=== PATIENT | female | born 2000 | race Two or more races ===

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

== ENCOUNTER 2018-01-13 19:24 | Emergency (ER) | payer MEDICAID ==
[~2018-01-13] VITALS: Ht 165.1 cm; Wt 90.8 kg
[2018-01-13 19:42] VITALS: BP 135/87
[2018-01-13 20:05] LABS: URINE HCG NEGATIVE (NEG)
[2018-01-13 20:08] LABS: CLARITY,URINE SLIGHTLY CLOUDY (Clear); COLOR,URINE YELLOW (Yellow); GLUCOSE, URINE NEGATIVE (Neg); KETONES,URINE NEGATIVE (Neg); LEUKOCYTE ESTERASE ,URINE LARGE (Neg); NITRITES, URINE NEGATIVE (Neg); OCCULT BLOOD,URINE SMALL (Neg); PROTEIN,URINE NEGATIVE (Neg)
[2018-01-13 20:10] LABS: UA COLLECTION TYPE CLN CATCH MIDSTREAM
[2018-01-13 20:25] LABS: BASOPHILS % (AUTO) 0.4 % (0-1); EOSINOPHILS # (AUTO) 0.1 X10'3 (0-0.9); EOSINOPHILS % (AUTO) 0.7 % (0-6); HEMOGLOBIN 14.3 g/dl (12.0-16.0); LYMPHOCYTES # (AUTO) 4.8 X10'3 (1.1-4.8); LYMPHOCYTES % (AUTO) 44.5 % (21-51); MEAN CORPUSCULAR HEMOGLOBIN 32.1 PG (27.0-31.0); MEAN CORPUSCULAR HGB CONC 34.8 % (33.0-36.5); MEAN CORPUSCULAR VOLUME 92.3 FL (78-98); MEAN PLATELET VOLUME 8.6 FL (7.4-10.4); MONOCYTES # (AUTO) 0.5 X10'3 (0-0.9); MONOCYTES % (AUTO) 4.9 % (2-12); NEUTROPHILS # (AUTO) 5.3 X10'3 (1.8-7.7); NEUTROPHILS % (AUTO) 49.5 % (42-75); PLATELET COUNT 284 X10'3 (140-440); RED BLOOD COUNT 4.44 X10'6 (4.20-5.60); RED CELL DISTRIBUTION WIDTH 12.4 % (11.5-14.5); WHITE BLOOD COUNT 10.7 X10'3 (4.5-11.0)
[2018-01-13] MEDS ORDERED: HYDROcodone/acetaminophen 10/325mg tab PO ONE ×2 (20:35→22:25)
[2018-01-13 20:38] LABS: BACTERIA,URINE 2+ /HPF (Neg); MUCUS STRANDS MODERATE /LPF (Neg); RBC,URINE 0-2 /HPF (0-2); SQUAMOUS EPITHELIAL CELL,UR MODERATE /LPF (FEW); WBC,URINE 20-30 /HPF (0-4)
[2018-01-13 20:40] LABS: ALANINE AMINOTRANSFERASE 23 U/L (12-78); ALBUMIN 3.7 G/DL (3.4-5.0); ALKALINE PHOSPHATASE 77 IU/L (20-180); ANION GAP 9 (8-16); ASPARTATE AMINO TRANSFERASE 14 U/L (10-37); BILIRUBIN,TOTAL 0.2 MG/DL (0.1-1.0); BLOOD UREA NITROGEN 8 MG/DL (7-18); BUN/CREATININE RATIO 10.5 (6.6-38.0); CALCIUM 8.6 MG/DL (8.5-10.1); CHLORIDE 102 MMOL/L (99-107); CREATININE 0.76 MG/DL (0.40-0.90); GLUCOSE 90 MG/DL (70-104); POTASSIUM 3.9 MMOL/L (3.5-5.1); SODIUM 135 MMOL/L (135-145); TOTAL CARBON DIOXIDE 24.5 MMOL/L (24-32); TOTAL PROTEIN 7.5 G/DL (6.4-8.2); eGFR > 90 ML/MIN
[2018-01-13] MEDS ORDERED: CIPR-230 PO (22:22)
[2018-01-13] MEDS ORDERED: HYDR-565 PO (22:22)
[2018-01-13] MEDS ORDERED: ciprofloxacin 250mg tablet PO ONE (22:25)
== END 2018-01-13 22:35 | disposition home or self-care (01) ==
LOC: ER 19:24
DX: R10.31 Right lower quadrant pain (principal); R10.32 Left lower quadrant pain; R10.84 Generalized abdominal pain
CPT/HCPCS: 36415; 80053; 81001; 81025; 85025; 87088; 87210; 99284

== ENCOUNTER 2018-02-11 15:16 | Emergency (ER) | payer MEDICAID ==
[~2018-02-11] VITALS: Ht 162.6 cm; Wt 99.0 kg
[~2018-02-11 15:16] MED LIST changes: +CIPR-230 PO; +HYDR-565 PO
[2018-02-11 15:25] VITALS: BP 132/90
[2018-02-11 17:28] LABS: BASOPHILS % (AUTO) 0.4 % (0-1); EOSINOPHILS % (AUTO) 0.5 % (0-6); HEMATOCRIT 43.4 % (35.0-45.0); HEMOGLOBIN 14.9 g/dl (12.0-16.0); LYMPHOCYTES # (AUTO) 3.4 X10'3 (1.1-4.8); MEAN CORPUSCULAR HEMOGLOBIN 31.1 PG (27.0-31.0); MEAN CORPUSCULAR HGB CONC 34.4 % (33.0-36.5); MEAN CORPUSCULAR VOLUME 90.6 FL (78-98); MEAN PLATELET VOLUME 10.3 FL (7.4-10.4); MONOCYTES # (AUTO) 0.4 X10'3 (0-0.9); MONOCYTES % (AUTO) 5.4 % (2-12); NEUTROPHILS # (AUTO) 3.5 X10'3 (1.8-7.7); NEUTROPHILS % (AUTO) 47.7 % (42-75); PLATELET COUNT 251 X10'3 (140-440); RED CELL DISTRIBUTION WIDTH 12.2 % (11.5-14.5); WHITE BLOOD COUNT 7.4 X10'3 (4.5-11.0)
[2018-02-11 17:28] LABS: CLARITY,URINE CLEAR (Clear); COLOR,URINE YELLOW (Yellow); GLUCOSE, URINE NEGATIVE (Neg); KETONES,URINE NEGATIVE (Neg); LEUKOCYTE ESTERASE ,URINE NEGATIVE (Neg); NITRITES, URINE NEGATIVE (Neg); OCCULT BLOOD,URINE LARGE (Neg); PH,URINE 5.5 (4.8-8.0); PROTEIN,URINE NEGATIVE (Neg); UROBILINOGEN,URINE 0.2 E.U/dL (0.2-1.0)
[2018-02-11 17:31] LABS: UA COLLECTION TYPE CLN CATCH MIDSTREAM
[2018-02-11 17:34] LABS: MUCUS STRANDS NONE SEEN /LPF (Neg); SQUAMOUS EPITHELIAL CELL,UR FEW /LPF (FEW)
[2018-02-11 17:36] LABS: BACTERIA,URINE NONE SEEN /HPF (Neg); WBC,URINE 0-4 /HPF (0-4)
[2018-02-11 17:43] LABS: ALANINE AMINOTRANSFERASE 34 U/L (12-78); ALBUMIN 4.1 G/DL (3.4-5.0); ALKALINE PHOSPHATASE 85 IU/L (20-180); ANION GAP 10 (8-16); ASPARTATE AMINO TRANSFERASE 21 U/L (10-37); BILIRUBIN,TOTAL 0.2 MG/DL (0.1-1.0); BLOOD UREA NITROGEN 9 MG/DL (7-18); BUN/CREATININE RATIO 12.5 (6.6-38.0); CALCIUM 9.1 MG/DL (8.5-10.1); CHLORIDE 104 MMOL/L (99-107); CREATININE 0.72 MG/DL (0.40-0.90); GLUCOSE 86 MG/DL (70-104); POTASSIUM 4.1 MMOL/L (3.5-5.1); SODIUM 139 MMOL/L (135-145); TOTAL CARBON DIOXIDE 24.6 MMOL/L (24-32); TOTAL PROTEIN 8.2 G/DL (6.4-8.2); eGFR > 90 ML/MIN
[2018-02-11 17:53] LABS: URINE HCG NEGATIVE (NEG)
== END 2018-02-11 18:44 | disposition home or self-care (01) ==
LOC: ER 15:16
DX: N94.6 Dysmenorrhea, unspecified (principal); Z79.899 Other long term (current) drug therapy
CPT/HCPCS: 36415; 76856; 80053; 81001; 81025; 85025; 99285

== ENCOUNTER 2018-03-07 23:31 | Emergency (ER) | payer MEDICAID ==
[~2018-03-07] VITALS: Ht 167.6 cm; Wt 95.4 kg
[~2018-03-07 23:31] MED LIST changes: -CIPR-230 PO; -HYDR-565 PO
[2018-03-08 01:19] VITALS: BP 136/71
[2018-03-08] MEDS ORDERED: HYDROcodone/acetaminophen 5mg/325mg tablet PO ONE (01:20)
[2018-03-08] MEDS ORDERED: ondansetron 4mg rapidly disintigrating tab PO ONE (01:20)
== END 2018-03-08 01:35 | disposition home or self-care (01) ==
LOC: ER 23:32
DX: S10.91XA Abrasion of unspecified part of neck, initial encounter (principal); Z79.899 Other long term (current) drug therapy; Y04.0XXA Assault by unarmed brawl or fight, initial encounter; Y93.89 Activity, other specified; Y92.89 Other specified places as the place of occurrence of the external cause; Y99.8 Other external cause status
CPT/HCPCS: 99283

== ENCOUNTER 2018-05-21 00:59 | Emergency (ER) | payer MEDICAID ==
[~2018-05-21] VITALS: Ht 162.6 cm; Wt 95.0 kg
[2018-05-21 01:28] VITALS: BP 123/49
[2018-05-21] MEDS ORDERED: NAPR-56 PO (02:27)
[2018-05-21] MEDS ORDERED: HYDROcodone/acetaminophen 10/325mg tab PO ONE (02:30)
== END 2018-05-21 02:35 | disposition home or self-care (01) ==
LOC: ER 00:59
DX: S60.211A Contusion of right wrist, initial encounter (principal); F17.200 Nicotine dependence, unspecified, uncomplicated; Z79.899 Other long term (current) drug therapy; W01.0XXA Fall on same level from slipping, tripping and stumbling without subsequent striking against object, initial encounter; Y93.89 Activity, other specified; Y92.89 Other specified places as the place of occurrence of the external cause; Y99.8 Other external cause status
CPT/HCPCS: 29125; 73110; 99284

== ENCOUNTER 2018-09-21 19:06 | Emergency (ER) | payer MEDICAID ==
[~2018-09-21] VITALS: Ht 165.1 cm; Wt 93.7 kg
[2018-09-21 19:37] VITALS: BP 119/80
[2018-09-21 20:20] LABS: BASOPHILS # (AUTO) 0.1 X10'3 (0-0.2); BASOPHILS % (AUTO) 0.8 % (0-1); EOSINOPHILS # (AUTO) 0.1 X10'3 (0-0.9); EOSINOPHILS % (AUTO) 0.7 % (0-6); HEMOGLOBIN 14.6 g/dl (12.0-16.0); LYMPHOCYTES % (AUTO) 41.8 % (21-51); MEAN CORPUSCULAR HEMOGLOBIN 30.8 PG (27.0-31.0); MEAN CORPUSCULAR HGB CONC 34.1 g/dL (33.0-36.5); MEAN CORPUSCULAR VOLUME 90.4 FL (78-98); MEAN PLATELET VOLUME 8.6 FL (7.4-10.4); MONOCYTES # (AUTO) 0.7 X10'3 (0-0.9); NEUTROPHILS # (AUTO) 4.8 X10'3 (1.8-7.7); NEUTROPHILS % (AUTO) 49.7 % (42-75); PLATELET COUNT 336 X10'3 (140-440); RED BLOOD COUNT 4.76 X10'6 (4.20-5.60); WHITE BLOOD COUNT 9.6 X10'3 (4.5-11.0)
[2018-09-21 20:24] LABS: ALANINE AMINOTRANSFERASE 25 U/L (12-78); ALBUMIN 3.4 G/DL (3.4-5.0); ALBUMIN/GLOBULIN RATIO 0.8 (1.1-1.5); ALKALINE PHOSPHATASE 74 IU/L (20-180); ANION GAP 9 (8-16); ASPARTATE AMINO TRANSFERASE 13 U/L (10-37); BILIRUBIN,TOTAL 0.2 MG/DL (0.1-1.0); BLOOD UREA NITROGEN 10 MG/DL (7-18); BUN/CREATININE RATIO 14.1 (6.6-38.0); CALCIUM 8.9 MG/DL (8.5-10.1); CHLORIDE 105 MMOL/L (99-107); CREATININE 0.71 MG/DL (0.40-0.90); GLUCOSE 98 MG/DL (70-104); POTASSIUM 3.9 MMOL/L (3.5-5.1); SODIUM 140 MMOL/L (135-145); TOTAL CARBON DIOXIDE 26.4 MMOL/L (24-32); TOTAL PROTEIN 7.7 G/DL (6.4-8.2); eGFR > 90 ML/MIN
[2018-09-21 20:59] LABS: URINE HCG NEGATIVE (NEG)
[2018-09-21 21:07] LABS: CLARITY,URINE SLIGHTLY CLOUDY (Clear); COLOR,URINE YELLOW (Yellow); GLUCOSE, URINE NEGATIVE (Neg); KETONES,URINE NEGATIVE (Neg); LEUKOCYTE ESTERASE ,URINE LARGE (Neg); NITRITES, URINE NEGATIVE (Neg); OCCULT BLOOD,URINE NEGATIVE (Neg); PH,URINE 6.5 (4.8-8.0); PROTEIN,URINE NEGATIVE (Neg)
[2018-09-21 21:13] LABS: BACTERIA,URINE FEW /HPF (Neg); MUCUS STRANDS MODERATE /LPF (Neg); RBC,URINE NONE SEEN /HPF (0-2); SQUAMOUS EPITHELIAL CELL,UR MODERATE /LPF (FEW); UA COLLECTION TYPE CLN CATCH MIDSTREAM
--- NOTE | 2018-09-21 22:51 | NUR ---
pelvic setup done
[2018-09-21] MEDS ORDERED: ibuprofen tablet 400 MG TABLET PO ONE (23:25)
[2018-09-21] MEDS ORDERED: CefTRIAXone 250MG IM Kit w/LIDOcaine IM ONE (23:40)
--- NOTE | 2018-09-21 23:41 | NUR ---
assisted Charles CORREIA with pelvic examine, pt ben well, IUD removed without complications, wet mount sent to lab
[2018-09-21] MEDS ORDERED: DOXY100C43 PO (23:46)
[2018-09-21] MEDS ORDERED: IBUP-1984 PO (23:46)
[2018-09-21] MEDS ORDERED: azithromycin 250mg tablet PO ONE (23:50)
== END 2018-09-22 00:21 | disposition home or self-care (01) ==
LOC: ER 19:06
DX: N73.9 Female pelvic inflammatory disease, unspecified (principal); Z79.899 Other long term (current) drug therapy
CPT/HCPCS: 36415; 80053; 81001; 81025; 85025; 85610; 87088; 87210; 87491; 87591; 96372; 99283; J0696

== ENCOUNTER 2018-11-07 21:39 | Emergency (ER) | payer MEDICAID ==
[~2018-11-07] VITALS: Ht 162.6 cm; Wt 95.0 kg
[2018-11-07 21:49] VITALS: BP 120/80
[2018-11-07] MEDS ORDERED: CEPH250T PO (23:32)
[2018-11-07] MEDS ORDERED: SULF1TAB49 PO (23:32)
== END 2018-11-07 23:50 | disposition home or self-care (01) ==
LOC: ER 21:40
DX: L03.116 Cellulitis of left lower limb (principal); L29.9 Pruritus, unspecified; F17.200 Nicotine dependence, unspecified, uncomplicated; Z79.1 Long term (current) use of non-steroidal anti-inflammatories (NSAID); Z79.2 Long term (current) use of antibiotics; Z79.899 Other long term (current) drug therapy
CPT/HCPCS: 99283

== ENCOUNTER 2019-03-24 16:47 | Emergency (ER) | payer MEDICAID ==
[~2019-03-24] VITALS: Ht 167.6 cm; Wt 106.0 kg
--- NOTE | 2019-03-24 21:10 | NUR ---
ASSISTING RN WITH PT CARE, DR GUERRERO AT BEDSIDE TO DO ULTRASOUND, CREDIT CARD CONTROL CLERK NOT AVAILABLE, PT DOES NOT WANT TO BE TRANSFERRED TO [facility] FOR ULTRASOUND, SHE NEEDS TO GO HOME TO CARE FOR KIDS, SHE SAID SHE CAN RETURN IN AM FOR ULTRASOUND,
[2019-03-24 21:18] VITALS: BP 117/68
== END 2019-03-24 21:30 | disposition home or self-care (01) ==
LOC: ER 16:48
DX: O20.0 Threatened abortion (principal); Z3A.01 Less than 8 weeks gestation of pregnancy
CPT/HCPCS: 36415; 84702; 86900; 86901; 99283

== ENCOUNTER 2020-01-14 12:11 | Emergency (ER) | payer MEDICAID ==
[~2020-01-14] VITALS: Ht 162.6 cm; Wt 92.3 kg
[2020-01-14 12:20] VITALS: BP 117/79
[2020-01-14] MEDS ORDERED: ketorolac tromethamine 15mg/ml inj. IM ONE (14:20)
== END 2020-01-14 14:28 | disposition home or self-care (01) ==
LOC: ER 12:11
DX: N94.89 Other specified conditions associated with female genital organs and menstrual cycle (principal); Z79.899 Other long term (current) drug therapy
CPT/HCPCS: 96372; 99283; J1885

== ENCOUNTER 2020-07-17 13:06 | Emergency (ER) | payer MEDICAID ==
[~2020-07-17] VITALS: Ht 165.1 cm; Wt 84.2 kg
[2020-07-17 16:13] LABS: BASOPHILS % (AUTO) 0.4 % (0-1); EOSINOPHILS # (AUTO) 0.1 X10'3 (0-0.9); EOSINOPHILS % (AUTO) 0.8 % (0-6); HEMATOCRIT 41.5 % (35.0-45.0); HEMOGLOBIN 13.9 g/dl (12.0-16.0); LYMPHOCYTES # (AUTO) 3.4 X10'3 (1.1-4.8); LYMPHOCYTES % (AUTO) 40.8 % (21-51); MEAN CORPUSCULAR HEMOGLOBIN 30.6 PG (27.0-31.0); MEAN CORPUSCULAR HGB CONC 33.4 g/dL (33.0-36.5); MEAN CORPUSCULAR VOLUME 91.7 FL (78-98); MEAN PLATELET VOLUME 9.2 FL (7.4-10.4); MONOCYTES # (AUTO) 0.3 X10'3 (0-0.9); MONOCYTES % (AUTO) 3.6 % (2-12); NEUTROPHILS # (AUTO) 4.5 X10'3 (1.8-7.7); NEUTROPHILS % (AUTO) 54.4 % (42-75); PLATELET COUNT 249 X10'3 (140-440); RED BLOOD COUNT 4.52 X10'6 (4.20-5.60); RED CELL DISTRIBUTION WIDTH 12.4 % (11.5-14.5); WHITE BLOOD COUNT 8.2 X10'3 (4.5-11.0)
[2020-07-17 16:16] LABS: CLARITY,URINE SLIGHTLY CLOUDY (Clear); COLOR,URINE YELLOW (Yellow); GLUCOSE, URINE NEGATIVE (Neg); KETONES,URINE NEGATIVE (Neg); LEUKOCYTE ESTERASE ,URINE NEGATIVE (Neg); NITRITES, URINE NEGATIVE (Neg); OCCULT BLOOD,URINE LARGE (Neg); PH,URINE 5.5 (4.8-8.0); PROTEIN,URINE NEGATIVE (Neg); UROBILINOGEN,URINE 0.2 E.U/dL (0.2-1.0)
[2020-07-17 16:17] LABS: URINE HCG NEGATIVE (NEG)
[2020-07-17] MEDS ORDERED: ketorolac tromethamine 15mg/ml inj. IM ONE (16:20)
[2020-07-17 16:22] LABS: MUCUS STRANDS MANY /LPF (Neg); SQUAMOUS EPITHELIAL CELL,UR MANY /LPF (FEW); UA COLLECTION TYPE CLN CATCH MIDSTREAM
[2020-07-17 16:23] LABS: TRANSITIONAL EPI CELLS,URINE FEW /HPF
[2020-07-17 16:24] LABS: BACTERIA,URINE FEW /HPF (Neg)
[2020-07-17 16:25] LABS: RBC,URINE 0-2 /HPF (0-2); WBC,URINE 0-4 /HPF (0-4)
[2020-07-17 16:38] LABS: ALANINE AMINOTRANSFERASE 25 U/L (12-78); ALBUMIN 3.8 G/DL (3.4-5.0); ALBUMIN/GLOBULIN RATIO 1.1 (1.1-1.5); ALKALINE PHOSPHATASE 78 IU/L (46-116); ANION GAP 10 (8-16); ASPARTATE AMINO TRANSFERASE 11 U/L (10-37); BILIRUBIN,TOTAL 0.2 MG/DL (0.1-1.0); BLOOD UREA NITROGEN 11 MG/DL (7-18); BUN/CREATININE RATIO 17.7 (6.6-38.0); CALCIUM 8.7 MG/DL (8.5-10.1); CHLORIDE 105 MMOL/L (99-107); CREATININE 0.62 MG/DL (0.40-0.90); GLUCOSE 110 MG/DL (70-104); LIPASE 67 U/L (73-393); POTASSIUM 4.1 MMOL/L (3.5-5.1); SODIUM 140 MMOL/L (135-145); TOTAL CARBON DIOXIDE 25.4 MMOL/L (24-32); TOTAL PROTEIN 7.4 G/DL (6.4-8.2); eGFR > 90 ML/MIN
[2020-07-17] MEDS ORDERED: TRAM50TA2 PO (16:43)
[2020-07-17] MEDS ORDERED: ketorolac tromethamine 15mg/ml inj. IV ONE (16:50)
[2020-07-17 17:04] VITALS: BP 118/89
[2020-07-18] MEDS ORDERED: FAMO40TA73 PO (05:57)
[2020-07-18] MEDS ORDERED: ONDA4TAB12 PO (05:57)
== END 2020-07-17 17:06 | disposition home or self-care (01) ==
LOC: ER 13:06
DX: R10.84 Generalized abdominal pain (principal); R53.1 Weakness; Z79.899 Other long term (current) drug therapy
CPT/HCPCS: 36415; 80053; 81001; 81025; 83690; 85025; 96372; 99283; J1885

== ENCOUNTER 2021-11-17 20:47 | Emergency (ER) | payer MEDICAID ==
[~2021-11-17 20:47] MED LIST changes: +FAMO40TA73 PO; +ONDA4TAB12 PO
== END 2021-11-17 21:59 | disposition left against medical advice (07) ==
LOC: ER 20:48
DX: R10.9 Unspecified abdominal pain (principal); Z53.21 Procedure and treatment not carried out due to patient leaving prior to being seen by health care provider